=== PATIENT | female | born 1950 | race Caucasian/White ===

== ENCOUNTER 2016-12-09 09:31 | Observation (INO) | payer OTHER ==
[~2016-12-09 09:31] MED LIST: ALLEGRA180 MG; ALTACE5 M4 PO; ALTACE5 MG; ALTACE5 MG PO; APRISO0.375 GM PO; ARTHRITIS PAIN650 M5 PO; ASPIRIN325 M3 PO; ASPIRIN81 MG PO; BACTRIM DS TABL1 TAB PO; BAYER CHEWABLE81 M2 PO; BENADRYL ALLERG25 M1 PO; BENADRYL25 MG PO; CELEBREX200 M1 PO; CELECOXIB200 MG PO; CENTRUM SILVER1 EAC1 PO; CENTRUM SILVER1 EAC6 PO; CENTRUM SILVER1 TA; CYMBALTA30 M1 PO; MACROBID 100 M100 M1 PO; MAXIDE PO; METOPROLOL SUCC25 M1 PO; METOPROLOL TART25 MG; NASONEX17 GM NS; NEXIUM; NEXIUM40 MG; NITROSTAT0.4 M1; OMEGA 31 CAP; OXYCODONE HCL5 M1 PO; PROBIOTIC1 EA10 PO; PROBIOTIC1 EACH PO; PYRIDIUM200 MG PO; SERTRALINE HCL50 MG PO; TOPROL XL25 MG PO; TRAMADOL HCL50 MG PO; TUMS PO; ULTRAM50 M1 PO; VITAMIN B-12250 MC2 PO; VITAMIN B-12250 MCG PO; VITAMIN B-6100 M1 PO; VITAMIN B-650 MG; VITAMIN B12500 MCG; VITAMIN B12500 MCG PO; VITAMIN B6100 MG PO; VITAMIN D400 UNI4 PO; VITAMIN D400 UNIT PO; VYTORIN; VYTORIN 10-201 EACH PO; VYTORIN 10/20 T1 TAB PO; XANAX0.25 MG PO; ZOCOR20 MG; ZOLOFT50 MG; ZYRTEC10 M1 PO; ZYRTEC10 MG; ZYRTEC1010 PO; [UNRECOGNIZED DRUG - OTHER]
[2016-12-09] MEDS ORDERED: TUMS200 MG CH (09:56)
[2016-12-09 09:57] LABS: BASO % 0.6 % (0-2); EOS % 4.1 % (0-7); EOSINOPHIL ABSOLUTE COUNT 0.2 tho/cmm (0.0-0.7); HCT-HEMATOCRIT 40.7 % (34.0-49.0); HGB-HEMOGLOBIN 13.1 gm/dl (12.0-15.5); LYMPH % 33.1 % (20-45); LYMPH ABSOLUTE COUNT 1.6 tho/cmm (0.8-4.5); MCH (MEAN CORPUSCULAR HGB) 27.2 pg (28.0-32.0); MCHC MEAN CORPUSCULAR HGB CONC 32.2 % (32.0-36.0); MCV (MEAN CELL VOLUME) 84.6 fl (82.0-96.0); MONO % 8.8 % (0-12); MONOCYTE ABSOLUTE COUNT 0.4 tho/cmm (0.0-1.2); NEUTROPHIL ABSOLUTE COUNT 2.5 tho/cmm (1.6-8.0); NEUTROPHIL-AUTOMATED 2.5 tho/cmm (1.6-8.0); NEUTROPHILS % 53.4 % (40-80); RED BLOOD COUNT 4.81 mil/cmm (4.00-5.20); RED CELL DISTRIBUTION WIDTH 13.9 % (12.4-16.4); WHITE BLOOD COUNT 4.7 tho/cmm (4.0-10.0)
[2016-12-09] MEDS ORDERED: ULTRAM50 M1 PO (10:10)
[2016-12-09] MEDS ORDERED: SUPREP BOWEL P354 ML PO (10:11)
[2016-12-09] MEDS ORDERED: OMEPRAZOLE20 M3 PO (10:12)
[2016-12-09 10:13] LABS: ALB/GLOB RATIO 0.9 (0.8-2.0); ALBUMIN 3.7 g/dl (3.5-5.0); ALKALINE PHOSPHATASE 76 U/L (33-138); ALT/SGPT 24 U/L (12-78); ANION GAP 11 mmol/L (0-20); AST/SGOT 30 U/L (10-40); BILIRUBIN,TOTAL 0.5 mg/dl (0-1.5); BLOOD UREA NITROGEN 10 mg/dl (6-24); CALCIUM 8.9 mg/dl (8.5-10.5); CARBON DIOXIDE-VENOUS 27 mmol/L (22-32); CHLORIDE 106 mmol/l (96-110); CREATININE 0.73 mg/dl (0.50-1.10); GLUCOSE 86 mg/dL (70-110); POTASSIUM 3.9 mmol/L (3.7-5.1); SODIUM 140 mmol/L (135-145); eGFR VALUE FOR BLACK >90 mL/Min
[2016-12-09] MEDS ORDERED: CELEBREX200 M1 PO (10:13)
[2016-12-09] MEDS ORDERED: PENNSAID TP (10:14)
[2016-12-09 10:36] LABS: PLATELET COUNT 187 tho/cmm (150-450)
[2016-12-09] MEDS ORDERED: EMERGEN-C 1,01000 MG PO (11:34)
[2016-12-09] MEDS ORDERED: ASPIRIN EC325 M1 PO (11:34)
[2016-12-09] MEDS ORDERED: [UNRECOGNIZED DRUG - OTHER] PO (11:35)
== END 2016-12-10 14:50 ==
LOC: EDMED 09:31 → EMR2 12:29 → CAR1 18:05
PROVIDERS: Emergency Medicine; ADMIT Internal Medicine
DX: R07.9 Chest pain, unspecified (principal); E78.5 Hyperlipidemia, unspecified; I25.10 Atherosclerotic heart disease of native coronary artery without angina pectoris; K50.90 Crohn's disease, unspecified, without complications; K21.9 Gastro-esophageal reflux disease without esophagitis; Z79.1 Long term (current) use of non-steroidal anti-inflammatories (NSAID); Z79.899 Other long term (current) drug therapy; Z88.1 Allergy status to other antibiotic agents; Z91.048 Other nonmedicinal substance allergy status; Z87.891 Personal history of nicotine dependence; Z87.11 Personal history of peptic ulcer disease; Z82.49 Family history of ischemic heart disease and other diseases of the circulatory system; Z90.89 Acquired absence of other organs; Z90.49 Acquired absence of other specified parts of digestive tract; Z90.710 Acquired absence of both cervix and uterus; Z95.1 Presence of aortocoronary bypass graft; Z98.890 Other specified postprocedural states
CPT/HCPCS: A9500; C8929; G0378; J2405; J2785